=== PATIENT | female | born 1950 | race Caucasian/White ===

== ENCOUNTER 2024-03-05 15:05 | Inpatient (IN) | payer MEDICARE, OTHER ==
[~2024-03-05] VITALS: Ht 165.1 cm; Wt 67.1 kg
[2024-03-05] MEDS ORDERED: TIOT18CA3 IH (15:34)
[2024-03-05] MEDS ORDERED: IPRA12.9 INH (15:34)
[2024-03-05] MEDS ORDERED: OMEP40CA21 PO (15:34)
[2024-03-05] MEDS ORDERED: LORA-259 PO (15:34)
[2024-03-05] MEDS ORDERED: NICO-671 TP (15:34)
[2024-03-05] MEDS ORDERED: FLUT1BLS4 IH (15:34)
[2024-03-05] MEDS ORDERED: FLUT16SP BNOSTRILS (15:34)
[2024-03-05] MEDS ORDERED: ESTR0.623 VG (15:34)
[2024-03-05] MEDS ORDERED: [UNRECOGNIZED DRUG - CODE] TP (15:34)
[2024-03-05] MEDS ORDERED: DUPI300S SQ (15:34)
[2024-03-05] MEDS ORDERED: SERT100T PO (15:34)
[2024-03-05] MEDS ORDERED: TRIA60LO7 TP (15:34)
[2024-03-05] MEDS ORDERED: ALBU2.5V13 NEB (15:34)
[2024-03-05] MEDS ORDERED: BUPR300T52 PO (15:34)
[2024-03-05] MEDS ORDERED: Azelastine EACHEYE (15:34)
[2024-03-05] MEDS ORDERED: PIME30CR TP (15:34)
[2024-03-05 16:30] VITALS: BP 127/76; TEMP 98; O2SAT 94
[2024-03-05] MEDS ORDERED: ACETAMINOPHEN 325 MG TABLET PO PRN ×2 (16:45)
[2024-03-05] MEDS ORDERED: LORAZEPAM 0.5 MG TABLET PO PRN ×2 (16:45)
[2024-03-05] MEDS ORDERED: TEMAZEPAM 7.5 MG CAPSULE PO PRN ×3 (16:45→21:15)
[2024-03-05] MEDS ORDERED: MAGNESIUM HYDROXIDE 30 ML LIQUID UDC PO PRN (16:45)
[2024-03-05] MEDS ORDERED: MAG HYDROX/AL HYDROX/SIMETH 30 ML LIQUID UDC PO PRN ×2 (16:45)
[2024-03-05] MEDS: BLOOD SUGAR DIAGNOSTIC 1 EACH STRIP VI ONE (16:48)
[2024-03-05] MEDS ORDERED: CLONAZEPAM 0.5 MG TABLET PO PRN ×2 (20:00)
[2024-03-05] MEDS: TEMAZEPAM 7.5 MG CAPSULE PO ONE (21:00)
[2024-03-06] MEDS: MAGNESIUM HYDROXIDE 30 ML LIQUID UDC PO PRN (05:32)
[2024-03-06 08:04] VITALS: BP 117/71; TEMP 98.1; O2SAT 100
[2024-03-06 10:04] LABS: ALANINE AMINOTRANSFERASE 18 U/L (14-59); ALBUMIN 3.2 g/dL (3.4-5.0); ALKALINE PHOSPHATASE 81 U/L (50-136); ASPARTATE AMINOTRANSFERASE 11 U/L (15-37); BILIRUBIN,DIRECT 0.1 mg/dL (0.0-0.2); BILIRUBIN,TOTAL 0.4 mg/dL (0.2-1.0); CALCIUM 8.5 mg/dL (8.5-10.1); CARBON DIOXIDE 26 mmol/L (21-32); CHLORIDE 108 mmol/L (98-107); CREATININE 0.8 mg/dL (0.6-1.3); GLUCOSE 93 mg/dL (74-106); SODIUM SERUM 144 mmol/L (136-145); TOTAL PROTEIN, SERUM 6.1 g/dL (6.4-8.2); UREA NITROGEN, BLOOD 8 mg/dL (7-18)
[2024-03-06] MEDS: SERTRALINE HCL 100 MG TABLET PO SCH (10:10)
[2024-03-06] MEDS: buPROPion XL 150 MG TAB.SR.24H PO SCH (10:10)
[2024-03-06] MEDS ORDERED: HYDR453. TP (10:13)
[2024-03-06] MEDS ORDERED: ESTR42.5 VG (10:13)
[2024-03-06] MEDS ORDERED: TRIA15CR4 TP (10:13)
[2024-03-06] MEDS ORDERED: IPRA0.2S48 NEB (10:28)
[2024-03-06] MEDS ORDERED: FLUTICASONE PROP NASAL SPRAY 16 GM BOTTLE NS PRN (13:00)
[2024-03-06] MEDS ORDERED: TRIAMCINOLONE ACET 0.1% CREAM 15 GM TUBE TP PRN (13:00)
[2024-03-06 16:04] VITALS: BP 125/72; TEMP 97.8; O2SAT 98
[2024-03-06] MEDS: IPRATROPIUM BROMIDE 0.5 MG/2.5 ML NEBU NEB PRN (17:08)
[2024-03-06] MEDS: ALBUTEROL SULFATE 2.5 MG/ 0.5 ML NEBU NEB PRN (17:08)
[2024-03-06 17:10] VITALS: O2SAT 93
[2024-03-06 17:25] VITALS: O2SAT 94
[2024-03-06 20:00] VITALS: BP 109/51; TEMP 98.2; O2SAT 97
[2024-03-07 08:06] VITALS: BP 115/63; TEMP 98; O2SAT 97
[2024-03-07] MEDS: buPROPion XL 150 MG TAB.SR.24H PO SCH (08:20)
[2024-03-07] MEDS: NICOTINE 14 MG/24HR PATCH TD SCH (08:20)
[2024-03-07 16:08] VITALS: BP 115/66; TEMP 98.2; O2SAT 100
[2024-03-07 20:03] VITALS: BP 112/51; TEMP 98.1; O2SAT 100
== END 2024-03-07 21:00 | disposition left against medical advice (07) | DRG 881 ==
LOC: ER 15:13 → GPS 15:54
PROVIDERS: ADMIT Psychiatry & Neurology Psychiatry
DX: F32.9 Major depressive disorder, single episode, unspecified (principal); R45.851 Suicidal ideations; E44.1 Mild protein-calorie malnutrition; F17.210 Nicotine dependence, cigarettes, uncomplicated; Z91.51 Personal history of suicidal behavior; J44.9 Chronic obstructive pulmonary disease, unspecified; K21.9 Gastro-esophageal reflux disease without esophagitis; F41.1 Generalized anxiety disorder; L30.9 Dermatitis, unspecified; M15.9 Polyosteoarthritis, unspecified; E78.5 Hyperlipidemia, unspecified; E88.09 Other disorders of plasma-protein metabolism, not elsewhere classified; Z88.1 Allergy status to other antibiotic agents; Z88.0 Allergy status to penicillin; Z88.7 Allergy status to serum and vaccine; Z88.8 Allergy status to other drugs, medicaments and biological substances; Z79.899 Other long term (current) drug therapy; Z79.51 Long term (current) use of inhaled steroids
CPT/HCPCS: 36415; J3535